=== PATIENT | female | born 1990 | race Caucasian/White ===

== ENCOUNTER 2018-11-14 12:11 | Emergency (ER) | payer OTHER ==
[2018-11-14] MEDS ORDERED: ONDANSETRON 4 MG/2 ML VIAL ONE (13:02)
[2018-11-14 13:07] LABS: Protime INR 0.96
[2018-11-14 13:08] LABS: Absolute Monocytes 0.4 K/uL (0.1-1.3); Absolute Neutrophil 3.5 K/uL (1.8-8.0); Basophils % 1.3 % (0-1.3); Hematocrit 43.6 % (36.0-45.0); Lymphocytes % 32.9 % (15.3-44.8); MPV 8.4 fL (7.6-11.3); Monocytes % 5.8 % (3.3-12.3); RBC Red Blood Cell Count 4.64 M/uL (3.86-4.86)
--- NOTE | 2018-11-14 13:10 | RAD REPORT ---
EXAM DESCRIPTION: CT - Head Brain Wo Cont - 11/14/2018 1:03 pm CLINICAL HISTORY: Headache, left-sided neck pain COMPARISON: None. TECHNIQUE: Axial 5 mm thick images of the head were obtained without IV contrast. All CT scans are performed using dose optimization technique as appropriate and may include automated exposure control or mA/KV adjustment according to patient size. FINDINGS: No intracranial hemorrhage, mass, edema or shift of mid-line structures. No acute infarcti on changes seen. No abnormal extra-axial fluid collections. Ventricles are normal. Mastoid air cells and visualized portions of the paranasal sinuses are clear. No acute bony findings. IMPRESSION: Negative non-contrast CT head examination.
[2018-11-14 13:17] LABS: ALT/SGPT 32 U/L (12-78); AST/SGOT 31 U/L (15-37); Albumin 3.4 g/dL (3.4-5.0); Alkaline Phosphatase 93 U/L (45-117); BUN Blood Urea Nitrogen 14 mg/dL (7-18); Bicarbonate 26 mmol/L (21-32); Bilirubin Direct 0.1 mg/dL (0-0.2); Bilirubin Total 0.3 mg/dL (0.2-1.0); Glucose Level 118 mg/dL (74-106); Magnesium 1.9 mg/dL (1.8-2.4); NT PRO-BNP 11 pg/mL (<125); Potassium 3.9 mmol/L (3.5-5.1); Protein, Total 7.6 g/dL (6.4-8.2); Sodium Level 141 mmol/L (136-145); Troponin (Emerg Dept Use Only) < 0.02 ng/mL (0.0-0.045)
--- NOTE | 2018-11-14 13:44 | RAD REPORT ---
EXAM DESCRIPTION: RAD - Chest Single View - 11/14/2018 1:37 pm CLINICAL HISTORY: Shortness of breath COMPARISON: None. TECHNIQUE: AP portable chest image was obtained 1316 hours . FINDINGS: Lungs are clear. Heart and vasculature are normal. No measurable pleural effusion and no p neumothorax. No acute bony abnormality seen. No acute aortic findings suspected. IMPRESSION: No acute cardiopulmonary process.
[2018-11-14] MEDS ORDERED: IBUPROFEN 400 MG TAB ONE (13:46)
--- NOTE | 2018-11-14 14:20 | RAD REPORT ---
EXAM DESCRIPTION: MRI - Brain Wo Cont - 11/14/2018 2:05 pm CLINICAL HISTORY: Left-sided neck pain and headache, numbness and tingling right-side of the body COMPARISON: None. TECHNIQUE: Sagittal T1-weighted images were obtained along with axial PD, heavily T2-weighted and T2 -FLAIR images. Axial DWI and ADC mapping sequences were also obtained along with coronal heavily T2-w eighted images. FINDINGS: No intracranial hemorrhage, mass or acute infarction. There is no edema or shift of midlin e structures. No extra-axial fluid collections. Macdonald-matter/white matter junction is preserved. Signa l voids are seen as a normal finding in the major intracranial vessels. No globe or orbital content abnormality. No sella or supra sella abnormality. No tonsillar ectopia. Mastoid air cells and paranasal sinuses are clear. IMPRESSION: Negative non-contrast MRI of the Brain.
--- NOTE | 2018-11-14 15:00 | ER ---
Nurse's Notes [facility] Name: Esperanza Perez Age: 28 yrs Sex: Female : 1990 Arrival Date: 11/14/2018 Time: 12:13 Bed 8 Private MD: Diagnosis: Paresthesia of skin-Right arm and right leg;Headache Presentation: 11/14 12:14 Presenting complaint: EMS states: for a couple of days, she felt headache and pain on hj the L side of neck, today around 11 am, she felt numbness and tingling on the R side of the body; LMP- 11/13/18; V/S stable;. Transition of care: patient was not received from another setting of care. Onset of symptoms was November 14, 2018. Risk Assessment: Do you want to hurt yourself or someone else? Patient reports no desire to harm self or others. Initial Sepsis Screen: Does the patient meet any 2 criteria? No. Patient's initial sepsis screen is negative. Does the patient have a suspected source of infection? No. Patient's initial sepsis screen is negative. Care prior to arrival: None. 12:14 Method Of Arrival: EMS: [facility] 12:14 Acuity: RENAN 3 hj Triage Assessment: 12:18 General: Appears in no apparent distress. uncomfortable, Behavior is cooperative, hj appropriate for age, anxious. Pain: Denies pain. 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 - Social history:: Smoking status: Patient/guardian denies using tobacco, Patient uses alcohol, weekly. - Ebola Screening: : Patient negative for fever greater than or equal to 101.5 degrees Fahrenheit, and additional compatible Ebola Virus Disease symptoms Patient denies exposure to infectious person Patient denies travel to an Ebola-affected area in the 21 days before illness onset. Screenin:20 Abuse screen: Denies threats or abuse. Denies injuries from another. Nutritional hj screening: No deficits noted. Tuberculosis screening: No symptoms or risk factors identified. Fall Risk None identified. Assessment: 12:32 General: Appears in no apparent distress. uncomfortable, Behavior is cooperative, hj appropriate for age, anxious. Pain: Denies pain. Neuro: Level of Consciousness is awake, alert, obeys commands, Oriented to person, place, time, situation, Appropriate for age. Cardiovascular: Capillary refill < 3 seconds Patient's skin is warm and dry. Respiratory: Airway is patent Respiratory effort is even, unlabored, Respiratory pattern is regular, symmetrical. GI: No signs and/or symptoms were reported involving the gastrointestinal system. : No signs and/or symptoms were reported regarding the genitourinary system. EENT: No signs and/or symptoms were reported regarding the EENT system. Derm: No signs and/or symptoms reported regarding the dermatologic system. Musculoskeletal: Reports numbness in L side of body. 12:34 Reassessment: awaiting for provider to see pt;. hj 13:30 Reassessment: Patient and/or family updated on plan of care and expected duration. Pain hj level reassessed. Patient is alert, oriented x 3, equal unlabored respirations, skin warm/dry/pink. family with pt;. 13:53 Reassessment: wheeled to MRI;. hj 15:14 Reassessment: Patient and/or family updated on plan of care and expected duration. Pain hj level reassessed. Patient is alert, oriented x 3, equal unlabored respirations, skin warm/dry/pink. pt was asking about meningitis test to be ran; provider in room to explain pt about meningitis symptoms;. Vital Signs: 12:18 BP 132 / 83; Pulse 65; Resp 18; Temp 98.1(O); Pulse Ox 100% on R/A; Weight 72.57 kg; hj Height 5 ft. 9 in. (175.26 cm); Pain 0/10; 13:30 BP 128 / 85; Pulse 65; Resp 18; Pulse Ox 100% on R/A; hj 14:51 BP 118 / 87; Pulse 65; Resp 18; Temp 98.1; Pulse Ox 100% on R/A; hj 15:14 BP 120 / 80; Pulse 67; Resp 18; Pulse Ox 100% on R/A; hj 12:18 Body Mass Index 23.63 (72.57 kg, 175.26 cm) ED Course: 12:13 Patient arrived in ED. hj 12:16 Triage completed. hj 12:20 Arm band placed on right wrist. hj 12:20 Patient has correct armband on for positive identification. Placed in gown. Bed in low hj position. Call light in reach. Side rails up X 1. 12:23 Maulik Hernandez, RN is Primary Nurse. hj 12:33 Initial lab(s) drawn, by me. Inserted saline lock: 20 gauge in right antecubital area, hj using aseptic technique. Blood collected. 12:39 Mark Francis PA is PHCP. cp 12:39 Mark Chinchilla MD is Attending Physician. cp 13:03 CT completed. Patient tolerated procedure well. Patient moved to CT via stretcher. Patient moved back from CT. 13:04 CT Head Brain wo Cont In Process Unspecified. EDMS 13:13 X-ray completed. Portable x-ray completed in exam room. Patient tolerated procedure jb2 well. 13:26 EKG done, by fire management technician. reviewed by Mark Chinchilla MD. at1 13:37 XRAY Chest (1 view) In Process Unspecified. EDMS 13:54 MRI - Brain Wo Cont In Process Unspecified. EDMS 14:11 MRI completed. Patient tolerated well. Patient moved back from MRI. em2 14:59 Albaro Renteria MD is Referral Physician. cp 15:15 No provider procedures requiring assistance completed. IV discontinued, intact, hj bleeding controlled, No redness/swelling at site. Pressure dressing applied. Administered Medications: 12:52 Drug: Zofran 4 mg Route: IVP; Site: right antecubital; hj 13:35 Follow up: Response: No adverse reaction hj 15:07 Follow up: Response: Nausea is decreased hj 13:42 Drug: Aspirin Chewable Tablet 324 mg Route: PO; pc1 13:54 Follow up: Response: No adverse reaction hj 13:42 Drug: foLIC Acid 1 mg Route: IVPB; Site: right antecubital; pc1 13:54 Follow up: IV Status: Completed infusion hj 14:50 Not Given (Patient Refused): Tylenol 650 mg PO once hj 14:50 Not Given (Patient Refused): Decadron - Dexamethasone 10 mg IVP once; if patient wants hj for headache 14:50 Not Given (Patient Refused): Reglan 10 mg IVP once; over 1 to 2 minutes, if patient hj wants for headache Point of Care Testing: Blood Glucose: 12:26 Blood Glucose: 114 mg/dL; pc1 Ranges: Outcome: 15:00 Discharge ordered by . binta 15:15 Attestation : i agree with the assessment and notes of Tomi Cutler RN. 15:15 Discharged to home ambulatory, with family. 15:15 Condition: stable 15:15 Discharge instructions given to patient, family, Instructed on discharge instructions, follow up and referral plans. Demonstrated understanding of instructions, follow-up care. 15:21 Patient left the ED. Signatures: Dispatcher [employer] EDMS Albaro Hook jb2 Desirae Lew Enrique em2 Liz Michael, ambulatory analyst EKG Tat1 Maulik Hernandez RN RN hj Page, Corey, PA PA cp Cantu, Patrick pc1 Corrections: (The following items were deleted from the chart) 13:54 13:53 Reassessment: wheeled to CT: [facility] 14:53 12:18 BP 132 / 83; Resp 18bpm; Pulse Ox 100% RA; Temp 98.1F Oral; 72.57 kg; Height 5 hj ft. 9 in.; BMI: 23.6; Pain 0/10; hj
--- NOTE | 2018-11-14 15:01 | EDPHYS ---
Physician Documentation [facility] Name: Esperanza Perez Age: 28 yrs Sex: Female : 1990 Arrival Date: 11/14/2018 Time: 12:13 Bed 8 Private MD: ED Physician Mark Chinchilla HPI: 11/14 12:45 This 28 yrs old Female presents to ER via EMS with complaints of Numbness Of cp Arm. 12:45 The patient or guardian complains of numbness. The complaints affect the right arm and cp right leg. Onset: The symptoms/episode began/occurred today, at 11:00. Treatment prior to arrival includes: no previous treatment. 12:45 Associated signs and symptoms: Pertinent negatives: decreased range of motion, fever, cp pain, swelling, weakness, headache, change in vision. Severity of symptoms: in the emergency department the symptoms are unchanged. 12:45 Patient reports having headache and left side neck pain couple days ago that has cp improved. 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 - Social history:: Smoking status: Patient/guardian denies using tobacco, Patient uses alcohol, weekly. - Ebola Screening: : Patient negative for fever greater than or equal to 101.5 degrees Fahrenheit, and additional compatible Ebola Virus Disease symptoms Patient denies exposure to infectious person Patient denies travel to an Ebola-affected area in the 21 days before illness onset. ROS: 13:00 Constitutional: Negative for body aches, chills, fever, poor PO intake. cp 13:00 Eyes: Negative for injury, pain, redness, and discharge. cp 13:00 ENT: Negative for drainage from ear(s), ear pain, sore throat, difficulty swallowing, difficulty handling secretions. 13:00 Neck: Negative for injury or acute deformity, pain with movement, pain at rest, stiffness, tenderness. 13:00 Cardiovascular: Negative for chest pain, edema, palpitations. 13:00 Respiratory: Negative for cough, shortness of breath, wheezing. 13:00 Abdomen/GI: Negative for abdominal pain, nausea, vomiting, and diarrhea, constipation. 13:00 Back: Negative for pain at rest, pain with movement, radiated pain. 13:00 : Negative for urinary symptoms. 13:00 Skin: Negative for cellulitis, rash. 13:00 Neuro: Positive for numbness, of the right arm and right leg, Negative for altered mental status, dizziness, headache, speech changes, syncope, visual changes, weakness. 13:00 All other systems are negative. Exam: 13:05 Constitutional: The patient appears in no acute distress, alert, awake, cp non-diaphoretic, non-toxic, well developed, well nourished. 13:05 Head/Face: Normocephalic, atraumatic. Eyes: Pupils equal round and reactive to light, cp extra-ocular motions intact. Lids and lashes normal. Conjunctiva and sclera are non-icteric and not injected. Cornea within normal limits. Periorbital areas with no swelling, redness, or edema. ENT: Nares patent. No nasal discharge, no septal abnormalities noted. Tympanic membranes are normal and external auditory canals are clear. Oropharynx with no redness, swelling, or masses, exudates, or evidence of obstruction, uvula midline. Mucous membranes moist. Neck: Trachea midline, no thyromegaly or masses palpated, and no cervical lymphadenopathy. Supple, full range of motion without nuchal rigidity, or vertebral point tenderness. No Meningismus. Chest/axilla: Normal chest wall appearance and motion. Nontender with no deformity. No lesions are appreciated. 13:05 Cardiovascular: Rate: normal, Rhythm: regular, Heart sounds: murmur, not appreciated, rub, not appreciated, gallop, not appreciated, Edema: is not appreciated. 13:05 Respiratory: the patient does not display signs of respiratory distress, Respirations: normal, no use of accessory muscles, no retractions, no splinting, no tachypnea, labored breathing, is not present, Breath sounds: are clear throughout, no decreased breath sounds, no stridor, no wheezing. 13:05 Abdomen/GI: Inspection: abdomen appears normal, Palpation: abdomen is soft and non-tender, in all quadrants. 13:05 Back: pain, is absent, ROM is normal. 13:05 Musculoskeletal/extremity: Exam is negative for bony tenderness, calf tenderness, decreased range of motion, deformity, injury. 13:05 Skin: cellulitis, is not appreciated, no rash present. 13:05 Neuro: Orientation: to person, place \T\ time. Mentation: is normal, Cerebellar function: is grossly normal, Motor: moves all fours, strength is normal, Sensation: light touch is decreased in the right arm and right leg. Vital Signs: 12:18 BP 132 / 83; Pulse 65; Resp 18; Temp 98.1(O); Pulse Ox 100% on R/A; Weight 72.57 kg; hj Height 5 ft. 9 in. (175.26 cm); Pain 0/10; 13:30 BP 128 / 85; Pulse 65; Resp 18; Pulse Ox 100% on R/A; hj 14:51 BP 118 / 87; Pulse 65; Resp 18; Temp 98.1; Pulse Ox 100% on R/A; hj 15:14 BP 120 / 80; Pulse 67; Resp 18; Pulse Ox 100% on R/A; hj 12:18 Body Mass Index 23.63 (72.57 kg, 175.26 cm) MDM: 12:43 Patient medically screened. 14:57 Data reviewed: vital signs, nurses notes, lab test result(s), radiologic studies, CT cp scan, MRI, I have discussed the patient's presentation/case with the attending Emergency Department Physician; and as a result, I will discharge patient. Response to treatment: the patient's symptoms have markedly improved after treatment, Patient reports numbness improved and having slight headache now. Refuses any meds for headache at this time. Will discharge to home. Recommend baby aspirin daily and follow-up with neurology. 11/14 12:45 Order name: Basic Metabolic Panel; Complete Time: 13:42 cp 11/14 14:39 Interpretation: Normal except: GLUC 118; GFR 77; CA 8.4. cp 11/14 12:45 Order name: CBC with Diff; Complete Time: 13:13 cp 11/14 12:45 Order name: LFT's; Complete Time: 13:42 cp 11/14 14:23 Interpretation: GLOB 4.2; A/G 0.8. cp 11/14 12:45 Order name: Magnesium; Complete Time: 13:42 cp 11/14 12:45 Order name: NT PRO-BNP; Complete Time: 13:42 cp 11/14 12:45 Order name: PT-INR; Complete Time: 13:13 cp 11/14 12:45 Order name: Troponin (emerg Dept Use Only); Complete Time: 13:42 cp 11/14 12:45 Order name: XRAY Chest (1 view); Complete Time: 14:23 cp 11/14 14:40 Interpretation: Report review. 11/14 12:45 Order name: CT Head Brain wo Cont; Complete Time: 13:13 cp 11/14 13:15 Order name: MRI - Brain Wo Cont; Complete Time: 14:23 cp 11/14 14:22 Order name: Urine Dipstick--Ancillary (enter results) 11/14 14:22 Order name: Urine --Ancillary (enter results) 11/14 14:23 Order name: Glucose, Ancillary Testing; Complete Time: 14:39 EDMS 11/14 12:37 Order name: EKG - Nurse/Tech; Complete Time: 12:37 11/14 12:37 Order name: Urine Dipstick-Ancillary (obtain specimen); Complete Time: 14:19 11/14 12:37 Order name: Urine Test (obtain specimen); Complete Time: 14:19 11/14 12:45 Order name: Cardiac monitoring; Complete Time: 12:46 11/14 12:45 Order name: IV Saline Lock; Complete Time: 12:46 11/14 12:45 Order name: Labs collected and sent; Complete Time: 12:52 11/14 12:45 Order name: O2 Per Protocol; Complete Time: 12:46 11/14 12:45 Order name: O2 Sat Monitoring; Complete Time: 12:46 11/14 13:32 Order name: EKG Electrocardiogram; Complete Time: 13:33 EDMS Administered Medications: 12:52 Drug: Zofran 4 mg Route: IVP; Site: right antecubital; hj 13:35 Follow up: Response: No adverse reaction hj 15:07 Follow up: Response: Nausea is decreased hj 13:42 Drug: Aspirin Chewable Tablet 324 mg Route: PO; pc1 13:54 Follow up: Response: No adverse reaction hj 13:42 Drug: foLIC Acid 1 mg Route: IVPB; Site: right antecubital; pc1 13:54 Follow up: IV Status: Completed infusion hj 14:50 Not Given (Patient Refused): Tylenol 650 mg PO once hj 14:50 Not Given (Patient Refused): Decadron - Dexamethasone 10 mg IVP once; if patient wants hj for headache 14:50 Not Given (Patient Refused): Reglan 10 mg IVP once; over 1 to 2 minutes, if patient hj wants for headache Point of Care Testing: Blood Glucose: 12:26 Blood Glucose: 114 mg/dL; pc1 Ranges: Critical Glucose Levels:Adult <50 mg/dl or >400 mg/dl <40 mg/dl or >180 mg/dl Disposition: 11/14/18 15:00 Discharged to Home. Impression: Paresthesia of skin - Right arm and right leg, Headache. - Condition is Stable. - Discharge Instructions: Migraine Headache, Paresthesia, Aspirin and Your Heart. - Work release form, Medication Reconciliation Form, Thank You Letter, Antibiotic Education, Prescription Opioid Use form. - Follow up: Albaro Renteria MD; When: 2 - 3 days; Reason: Recheck today's complaints. - Problem is new. - Symptoms have improved. Addendum: 11/17/2018 07:09 Co-signature as Attending Physician, Mark Chinchilla MD I agree with the assessment and c doshi plan of care. Signatures: Dispatcher [employer] EDIA Mark Chinchilla MD MD cha Joaquin, Henry, RN RN Mark Borden PA PA cp Cantu, Patrick pc1 Corrections: (The following items were deleted from the chart) 11/14 14:39 14:39 Normal except: GLUC 118; GFR 77. cp cp 15:21 15:00 11/14/2018 15:00 Discharged to Home. Impression: Paresthesia of skin - Right arm hj and right leg; Headache. Condition is Stable. Forms are Medication Reconciliation Form, Thank You Letter, Antibiotic Education, Prescription Opioid Use. Follow up: Albaro Renteria; When: 2 - 3 days; Reason: Recheck today's complaints. Problem is new. Symptoms have improved. cp
[2018-11-14 18:10] LABS: Urine Blood NEGATIVE (NEG); Urine Glucose NEGATIVE (NEG); Urine Protein NEGATIVE (NEG); Urine Specific Gravity 1.015 (1.005-1.030); Urine pH 7.5 (5.0-7.0)
--- NOTE | 2018-11-15 09:25 | EKG ---
Test Date: 2018-11-14 Test Time: 12:26:48 Ground Crew Supervisor: NAHEED MEASUREMENT RESULTS: Intervals: Rate: 62 [place]: 140 QRSD: 84 QT: 468 QTc: 475 [place]: P: 62 [place]: 140 QRS: 79 T: 31 INTERPRETIVE STATEMENTS: Normal sinus rhythm with sinus arrhythmia Normal ECG No previous ECG available for comparison Electronically Signed On 11-15-18 09:21:53 CDT by Arnol Galvin
== END 2018-11-14 15:21 | disposition home or self-care (01) ==
LOC: ER 12:11
DX: R51 Headache (principal); Z88.0 Allergy status to penicillin; Z88.1 Allergy status to other antibiotic agents
CPT/HCPCS: 36415; 70450; 70551; 71045; 80048; 80076; 81003; 81025; 82962; 83735; 83880; 84484; 85025; 85610; 93005; 96374; 96375; 99285; J2405